=== PATIENT | male | born 1960 | race Caucasian/White ===

== ENCOUNTER 2016-12-14 16:18 | Emergency (ER) | payer MEDICAID ==
[2016-12-14 17:01] VITALS: BP 139/80
[2016-12-14] MEDS ORDERED: Bacitracin Oint 1 GM U/D Packet TOP ONE (17:16)
[2016-12-14] MEDS ORDERED: Diphtheria,Pertussis(Acell),Tetanus Vaccine 0.5 ML SDV IM ONE (17:16)
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
--- NOTE | 2016-12-15 09:48 | CR ---
Fingers Second Digit Rt F6 INDICATION: trauma, pigment grinder fb FINDINGS: Negative exam. No acute fracture or foreign body
== END 2016-12-14 18:41 | disposition home or self-care (01) ==
LOC: JP.ED 16:18
DX: S61.220A Laceration with foreign body of right index finger without damage to nail, initial encounter (principal); I10 Essential (primary) hypertension; E11.9 Type 2 diabetes mellitus without complications; Z87.891 Personal history of nicotine dependence; Z79.84 Long term (current) use of oral hypoglycemic drugs; Z79.899 Other long term (current) drug therapy; Z23 Encounter for immunization; W45.8XXA Other foreign body or object entering through skin, initial encounter
CPT/HCPCS: 12001; 73140-26-F6; 73140-F6; 90471; 90715; 99283-25

== ENCOUNTER 2017-07-05 00:45 | Emergency (ER) | payer MEDICAID ==
[2017-07-05] MEDS ORDERED: Sodium Chloride 0.9% 1,000 ML IV SCH (01:15)
[2017-07-05] MEDS ORDERED: Sodium Chloride 0.9% 10 ML Syringe FLUSH PRN (01:16)
[2017-07-05] MEDS ORDERED: HYDROmorphone 0.5 MG/0.5 ML Syringe IVPUSH ONE (01:16)
[2017-07-05] MEDS ORDERED: LORazepam 2 MG/ML SDV IVPUSH STA (01:16)
[2017-07-05] MEDS ORDERED: Ondansetron 4 MG/2 ML SDV ONE (01:20)
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
[2017-07-05 05:47] VITALS: BP 137/93
--- NOTE | 2017-07-05 08:46 | CR ---
Abdomen 2V AP Flat Upright Comparison: April 2015. FINDINGS: The bowel gas pattern is unremarkable. There is no bowel distention. There are no pathologi c air-fluid levels. No free air is seen. No pathologic calcifications are demonstrated. There has bee n prior abdominal hernia repair. There is moderate stool in the right colon. IMPRESSION: No acute findings are demonstrated.
== END 2017-07-05 06:02 | disposition home or self-care (01) ==
LOC: JP.ED 00:45
DX: R10.84 Generalized abdominal pain (principal); Z87.19 Personal history of other diseases of the digestive system; Z98.890 Other specified postprocedural states; E11.9 Type 2 diabetes mellitus without complications; I10 Essential (primary) hypertension; Z79.84 Long term (current) use of oral hypoglycemic drugs; Z79.899 Other long term (current) drug therapy; Z91.018 Allergy to other foods
CPT/HCPCS: 36415; 74019; 80053; 83690; 84484; 85027; 96361; 96374; 96375; 99284; J1170; J2060; J7030; J7050

== ENCOUNTER 2018-07-30 09:47 | Emergency (ER) | payer MEDICAID ==
[2018-07-30 10:13] VITALS: BP 114/90
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
--- NOTE | 2018-07-30 13:31 | CR ---
Fingers Thumb Lt FA: 07/30/2018 10:43 AM INDICATION: injury COMPARISON: None. FINDINGS/IMPRESSION: There is mild subluxation of the thumb at the MCP joint. This is likely degenerative in nature, however the possibility of acute on chronic subluxation is not excluded. Small corticated ossific densities are present adjacent to the first MCP joint which likely relate to sequela of remote trauma. No convincing acute fractures. 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 Mild soft tissue fullness is present adjacent to the first MCP joint. If there is high clinical suspicion for fracture, consider follow-up radiographs in 10 days.
== END 2018-07-30 11:24 | disposition home or self-care (01) ==
LOC: JP.ED 09:47
DX: S63.642A Sprain of metacarpophalangeal joint of left thumb, initial encounter (principal); E11.9 Type 2 diabetes mellitus without complications; I10 Essential (primary) hypertension; Z79.4 Long term (current) use of insulin; Z91.018 Allergy to other foods; Z79.899 Other long term (current) drug therapy; V29.9XXA Motorcycle rider (driver) (passenger) injured in unspecified traffic accident, initial encounter
CPT/HCPCS: 29125; 73140-26-FA; 73140-FA; 99283-25

== ENCOUNTER 2019-04-02 07:21 | Emergency (ER) | payer MEDICAID ==
[2019-04-02 07:34] VITALS: BP 132/93; PULSE 98
[2019-04-02] MEDS ORDERED: HYDROmorphone 0.5 MG/0.5 ML Syringe IM ONE (07:35)
[2019-04-02] MEDS ORDERED: Ketorolac 60 MG/2 ML SDV IM ONE (08:41)
[2019-04-02] MEDS ORDERED: Baclofen 10 MG Tab PO ONE (08:41)
--- NOTE | 2019-04-02 08:54 | CR ---
Pelvis 1V or 2V, Femur Min 2V Lt, Lumbar Spine 2 or 3V CLINICAL HISTORY: Pain, fall FINDINGS: No fracture or dislocation is identified. Articular surfaces are smooth. There is some mild acetabular spurring. There is calcific-like density overlying the right hip region. This likely is calcification within the gluteal muscle from previous injections IMPRESSION: No fracture or dislocation Lumbar Spine 2 or 3V CLINICAL HISTORY: Fall, pain FINDINGS: The vertebral body heights are maintained. There is moderate disc space narrowing at L5-S1. There is mild diffuse spondylosis. There are some osteoarthritic changes in the low lumbar facets Impression: Degenerative disc disease with spondylosis most notable L5-S1 Osteoarthropathy in the lower lumbar facets Femur LEFT FINDINGS: There is no acute fracture within the femur. No destructive changes are seen. There is some soft tissue convexity in the posterior mid thigh. Hematoma is not excluded. Impression: Possible posterior mid thigh hematoma. If clinically relevant ultrasound may be helpful
--- NOTE | 2019-04-02 08:58 | EDM.PDOC ---
ED HPI GENERAL MEDICAL PROBLEM - General Chief Complaint: Trauma Stated Complaint: FELL OFF LADDER Time Seen by Provider: 04/02/19 07:35 Source of Information: Reports: Patient History Limitations: Reports: No Limitations - History of Present Illness INITIAL COMMENTS - FREE TEXT/NARRATIVE: pt arrived with a history of cleaning off the roof at [facility] in [facility]. This happened about 2 pm yesterday. He is complaining of pain in the left buttock . He fell off the ladder and a large piece of ice fell on to his left hip area. He has swelling in the post thigh area. Onset: Other ( yesterday about 2 pm. A trauma code was called. ) Duration: Hour(s): Location: Reports: Pelvis, Lower Extremity, Left, Other (pt has pain radiating down the left leg. ) Left Leg Pain Score (Numeric/FACES): 10 - Related Data Allergies Allergy/AdvReac Type Severity Reaction Status Date / Time banana Allergy Hives Verified 04/02/19 07:34 Home Meds: Home Meds Glimepiride 4 mg PO BID 02/19/13 [History] Lisinopril 5 mg PO QAM 02/19/13 [History] SitaGLIPtin [Januvia] 100 mg PO DAILY 02/19/13 [History] Canagliflozin [Invokana] 300 mg PO QAM 04/14/15 [History] Insulin Isophane NPH, Human [HumuLIN N] 32 units SUBCUT DAILY 07/30/18 [History] metFORMIN [Glucophage] 1 tab PO BEDTIME 11/27/18 [History] metFORMIN [Glucophage] 2 tab PO ACBREAKFAST 11/27/18 [History] traMADol [Ultram] 1 tab PO Q8H PRN 11/27/18 [History] Past Medical History HEENT History: Reports: Impaired Vision, Other (See Below) Other HEENT History: wears glasses Cardiovascular History: Reports: Hypertension Respiratory History: Reports: Sleep Apnea Gastrointestinal History: Reports: Bowel Obstruction Genitourinary History: Reports: Other (See Below) Other Genitourinary History: erectile dysfunction Musculoskeletal History: Reports: Back Pain, Chronic Other Musculoskeletal History: herniated disk Neurological History: Reports: Concussion Endocrine/Metabolic History: Reports: Diabetes, Type II - Past Surgical History HEENT Surgical History: Reports: Cataract Surgery, Eye Surgery, Oral Surgery, Other (See Below) GI Surgical History: Reports: Hernia, Abdominal, Hernia Repair/Other, Other ( See Below) Other GI Surgeries/Procedures: hourglass intestine, 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 A large piec of ice hit the area. ) ED EXAM, GENERAL - Physical Exam Exam: See Below Free Text/Narrative:: pt arrived with signifcant pain with any movement of the left leg. He has swelling in the post thigh area. Exam Limited By: No Limitations General Appearance: Alert, Anxious, Moderate Distress Ears: Normal TMs Nose: Normal Inspection Throat/Mouth: Normal Inspection Head: Atraumatic Neck: Normal Inspection Respiratory/Chest: No Respiratory Distress Cardiovascular: Regular Rate, Rhythm GI/Abdominal: Soft, Non-Tender (Male) Exam: Deferred Rectal (Males) Exam: Deferred Back Exam: Other (pt is tender over the left buttock area. There is swelling in the post thigh. ) Extremities: Leg Pain Neurological: Alert, Oriented, Normal Cognition, Other (pt has a Glacow of 15) Psychiatric: Normal Affect, Anxious Course - Vital Signs Last Recorded V/S: Last Vital Signs Temp 36.4 C 04/02/19 07:33 Pulse 98 04/02/19 07:33 Resp 18 04/02/19 07:33 BP 132/93 H 04/02/19 07:33 Pulse Ox 92 L 04/02/19 07:33 - Orders/Labs/Meds Meds: Medications Discontinued Medications Generic Name Dose Route Start Last Admin Trade Name Freq PRN Reason Stop Dose Admin Bacitracin 1 dose 04/02/19 09:00 04/02/19 09:09 Bacitracin Oint 1 Gm TOP 04/02/19 09:01 1 dose ONETIME ONE Administration Baclofen 10 mg 04/02/19 08:41 04/02/19 08:50 Lioresal PO 04/02/19 08:42 10 mg ONETIME ONE Administration Hydromorphone HCl 0.5 mg 04/02/19 07:35 04/02/19 08:08 Dilaudid IM 04/02/19 07:36 0.5 mg ONETIME ONE Administration Ketorolac Tromethamine 60 mg 04/02/19 08:41 04/02/19 08:50 Toradol IM 04/02/19 08:42 60 mg ONETIME ONE Administration - Re-Assessments/Exams Free Text/Narrative Re-Assessment/Exam: 04/02/19 09:10 pt arrived very uncomfortable in the left thigh area. Xrays of the lumbar spine , left hip and left femeur and pelvis. These were neg for fracture. He appears to have a hematoma in the post thigh. He was warned that he might see some discoloration in the post thigh area. Departure - Departure Time of Disposition: 08:56 Disposition: Home, Self-Care 01 Condition: Fair Clinical Impression: Contusion of left hip, Muscle strain of left hip, Hematoma of left thigh, Abrasion of anterior left lower leg - Discharge Information Instructions: Muscle Strain, [id number], Contusion, [id number], Quadriceps Contusion, [id number] Referrals: PCP,None [Primary Care Provider] - Forms: ED Department Discharge Care Plan Goals: ice pack to the left hip and thigh area for the next 72 hours then may use moist heat, baclofen 10 mg bid to relax muscles, norco 5/325 q6 h prn for pain, clean abrasion daily and apply bacatracin Sepsis Event Note - Evaluation Sepsis Screening Result: No Definite Risk - Focused Exam Date Exam was Performed: 04/04/19 Time Exam was Performed: 08:33
[2019-04-02] MEDS ORDERED: Bacitracin Oint 1 GM U/D Packet TOP ONE (09:00)
== END 2019-04-02 09:15 | disposition home or self-care (01) ==
LOC: JP.ED 07:21
DX: S76.012A Strain of muscle, fascia and tendon of left hip, initial encounter (principal); S70.12XA Contusion of left thigh, initial encounter; S70.02XA Contusion of left hip, initial encounter; S80.812A Abrasion, left lower leg, initial encounter; E11.9 Type 2 diabetes mellitus without complications; I10 Essential (primary) hypertension; Z91.018 Allergy to other foods; Z79.899 Other long term (current) drug therapy; Z79.4 Long term (current) use of insulin; W11.XXXA Fall on and from ladder, initial encounter
CPT/HCPCS: 72100; 72170; 73552; 96372; 99283; A9270; J1170; J1885

== ENCOUNTER 2019-04-28 18:45 | Emergency (ER) | payer MEDICAID ==
[2019-04-28 19:01] VITALS: BP 124/86; PULSE 99
--- NOTE | 2019-04-28 19:11 | EDM.PDOC ---
ED HPI GENERAL MEDICAL PROBLEM - General Chief Complaint: Diabetic Complaint Stated Complaint: HIGH BLOOD SUGAR Time Seen by Provider: 04/28/19 19:09 Source of Information: Reports: Patient History Limitations: Reports: No Limitations - History of Present Illness INITIAL COMMENTS - FREE TEXT/NARRATIVE: pt arrived after calling the nurse line kandi his bs was over 500. He has not taken any of his meds today. He was at his girl friends today and had not taken his meds with him. He has been very fatiqued He normally is on metformin and insulin. He has been very fatiqued. Onset: Gradual Duration: Day(s):, Other (pt had a high bs but he had not taken his insulin today. ) Location: Reports: Generalized Quality: Reports: Other (mainly fatique) Improves with: Reports: None Associated Symptoms: Reports: Weakness - Related Data Allergies Allergy/AdvReac Type Severity Reaction Status Date / Time banana Allergy Hives Verified 04/28/19 18:55 Home Meds: Home Meds Glimepiride 4 mg PO BID 02/19/13 [History] Lisinopril 5 mg PO QAM 02/19/13 [History] SitaGLIPtin [Januvia] 100 mg PO DAILY 02/19/13 [History] Canagliflozin [Invokana] 300 mg PO QAM 04/14/15 [History] Insulin Isophane NPH, Human [HumuLIN N] 32 units SUBCUT DAILY 07/30/18 [History] metFORMIN [Glucophage] 1 tab PO BEDTIME 11/27/18 [History] metFORMIN [Glucophage] 2 tab PO ACBREAKFAST 11/27/18 [History] traMADol [Ultram] 1 tab PO Q8H PRN 11/27/18 [History] Past Medical History HEENT History: Reports: Impaired Vision, Other (See Below) Other HEENT History: wears glasses Cardiovascular History: Reports: Hypertension Respiratory History: Reports: Sleep Apnea Gastrointestinal History: Reports: Bowel Obstruction Genitourinary History: Reports: Other (See Below) Other Genitourinary History: erectile dysfunction Musculoskeletal History: Reports: Back Pain, Chronic Other Musculoskeletal History: herniated disk Neurological History: Reports: Concussion Endocrine/Metabolic History: Reports: Diabetes, Type II - Infectious Disease History Infectious Disease History: Reports: Chicken Pox - Past Surgical History HEENT Surgical History: Reports: Cataract Surgery, Eye Surgery, Oral Surgery, Other (See Below) GI Surgical History: Reports: Hernia, Abdominal, Hernia Repair/Other, Other ( See Below) Other GI Surgeries/Procedures: hourglass intestine, 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 ) GI/Abdominal: Reports: No Symptoms : Reports: No Symptoms Musculoskeletal: Reports: No Symptoms Skin: Reports: No Symptoms Neurological: Reports: No Symptoms ED EXAM GENERAL NO PERIP PULSE - Physical Exam Exam: See Below Text/Narrative:: pt looks good at this time. He has bween feeling more fatiqued. He has not taken his meds today so his bs was very high. Exam Limited By: No Limitations General Appearance: Alert, No Apparent Distress Ears: Normal TMs Nose: Normal Inspection Throat/Mouth: Normal Inspection Head: Atraumatic Neck: Normal Inspection Respiratory/Chest: No Respiratory Distress Cardiovascular: Regular Rate, Rhythm, Other (pt has not had chest pain. ) GI/Abdominal: Soft, Non-Tender (Male) Exam: Deferred Rectal (Males) Exam: Deferred Back Exam: Normal Inspection Extremities: Normal Inspection Neurological: Alert, Oriented, Normal Cognition Psychiatric: Anxious Course - Vital Signs Last Recorded V/S: Last Vital Signs Temp 36.9 C 04/28/19 18:56 Pulse 99 04/28/19 18:56 Resp 15 04/28/19 18:56 BP 124/86 04/28/19 18:56 Pulse Ox 93 L 04/28/19 18:56 Orthostatic Blood Pressure [ 101/81 Standing] Orthostatic Blood Pressure [ 126/90 Sitting] Orthostatic Blood Pressure [ 134/90 Supine] - Orders/Labs/Meds Labs: Laboratory Tests 04/28/19 04/28/19 04/28/19 Range/Units 19:17 19:17 19:17 WBC 7.2 (4.5-11.0) K/uL RBC 4.66 (4.30-5.90) M/uL Hgb 15.7 H (12.0-15.0) g/dL Hct 43.8 (40.0-54.0) % MCV 94 (80-98) fL MCH 34 H (27-31) pg MCHC 36 (32-36) % Plt Count 260 (150-400) K/uL Neut % (Auto) 53 (36-66) % Lymph % (Auto) 34 (24-44) % Hickman % (Auto) 11 H (2-6) % Eos % (Auto) 2 (2-4) % Baso % (Auto) 0 (0-1) % VBG pH 7.489 H (7.350-7.450) Sodium 132 L (140-148) mmol/L Potassium 4.2 (3.6-5.2) mmol/L Chloride 96 L (100-108) mmol/L Carbon Dioxide 25 (21-32) mmol/L Anion Gap 15.2 H (5.0-14.0) mmol/L BUN 20 H (7-18) mg/dL Creatinine 1.1 (0.8-1.3) mg/dL Est Cr Clr Drug Dosing 77.96 mL/min Estimated GFR (MDRD) > 60 (>60) Glucose 373 H (74-106) mg/dL Calcium 8.4 L (8.5-10.1) mg/dL Total Bilirubin 0.5 (0.2-1.0) mg/dL AST 23 (15-37) U/L ALT 40 (12-78) U/L Alkaline Phosphatase 93 (46-116) U/L Total Protein 7.6 (6.4-8.2) g/dL Albumin 3.2 L (3.4-5.0) g/dL Globulin 4.4 H (2.3-3.5) g/dL Albumin/Globulin Ratio 0.7 L (1.2-2.2) Urine Color (YELLOW) Urine Appearance (CLEAR) Urine pH (5.0-8.0) Ur Specific Clare (1.008-1.030) Urine Protein (NEGATIVE) mg/dL Urine Glucose (UA) (NEGATIVE) mg/dL Urine Ketones (NEGATIVE) mg/dL Urine Occult Blood (NEGATIVE) Urine Nitrite (NEGATIVE) Urine Bilirubin (NEGATIVE) Urine Urobilinogen (0.2-1.0) EU/dL Ur Leukocyte Esterase (NEGATIVE) Urine RBC (0-5) Urine WBC (0-5) Ur Epithelial Cells Amorphous Sediment Urine Bacteria Urine Mucus 04/28/19 Range/Units 19:29 WBC (4.5-11.0) K/uL RBC (4.30-5.90) M/uL Hgb (12.0-15.0) g/dL Hct (40.0-54.0) % MCV (80-98) fL MCH (27-31) pg MCHC (32-36) % Plt Count (150-400) K/uL Neut % (Auto) (36-66) % Lymph % (Auto) (24-44) % Hickman % (Auto) (2-6) % Eos % (Auto) (2-4) % Baso % (Auto) (0-1) % VBG pH (7.350-7.450) Sodium (140-148) mmol/L Potassium (3.6-5.2) mmol/L Chloride (100-108) mmol/L Carbon Dioxide (21-32) mmol/L Anion Gap (5.0-14.0) mmol/L BUN (7-18) mg/dL Creatinine (0.8-1.3) mg/dL Est Cr Clr Drug Dosing mL/min Estimated GFR (MDRD) (>60) Glucose (74-106) mg/dL Calcium (8.5-10.1) mg/dL Total Bilirubin (0.2-1.0) mg/dL AST (15-37) U/L ALT (12-78) U/L Alkaline Phosphatase (46-116) U/L Total Protein (6.4-8.2) g/dL Albumin (3.4-5.0) g/dL Globulin (2.3-3.5) g/dL Albumin/Globulin Ratio (1.2-2.2) Urine Color Yellow (YELLOW) Urine Appearance Clear (CLEAR) Urine pH 6.5 (5.0-8.0) Ur Specific Clare 1.020 (1.008-1.030) Urine Protein Negative (NEGATIVE) mg/dL Urine Glucose (UA) 500 H (NEGATIVE) mg/dL Urine Ketones Negative (NEGATIVE) mg/dL Urine Occult Blood Negative (NEGATIVE) Urine Nitrite Negative (NEGATIVE) Urine Bilirubin Negative (NEGATIVE) Urine Urobilinogen 0.2 (0.2-1.0) EU/dL Ur Leukocyte Esterase Negative (NEGATIVE) Urine RBC Not seen (0-5) Urine WBC 0-5 (0-5) Ur Epithelial Cells Not seen Amorphous Sediment Many Urine Bacteria Not seen Urine Mucus Not seen Meds: Medications Discontinued Medications Generic Name Dose Route Start Last Admin Trade Name Khris PRN Reason Stop Dose Admin Sodium Chloride 1,000 mls @ 999 mls/hr 04/28/19 19:45 04/28/19 20:21 Normal Saline IV 999 mls/hr ASDIRECTED YOUSIF Administration Insulin Human Regular 6 unit 04/28/19 19:45 04/28/19 20:17 Humulin R SUBCUT 04/28/19 19:46 6 unit ONETIME ONE Administration Insulin Human Regular 5 unit 04/28/19 21:12 04/28/19 21:27 Humulin R SUBCUT 04/28/19 21:13 5 units ONETIME ONE Administration Metformin HCl 500 mg 04/28/19 19:45 04/28/19 20:22 Glucophage PO 04/28/19 19:46 500 mg ONETIME ONE Administration - Re-Assessments/Exams Free Text/Narrative Re-Assessment/Exam: 04/28/19 20:31 pt had orthostatic bp done and with standing it did drop. He had numbers which showed some dehydration. He was given a liter of fluid. He was given regular insulin and 500 of glucophage. 04/28/19 21:13 pt has a bs at 329. 5 more units of insulin reg was given. Departure - Departure Time of Disposition: 21:35 Disposition: Home, Self-Care 01 Condition: Fair Clinical Impression: Dehydration, Hyperglycemia - Discharge Information Instructions: Dehydration, Adult, [id number], Hyperglycemia, [id number] Referrals: Albert Carpenter Sr, MD [Primary Care Provider] - Forms: ED Department Discharge Care Plan Goals: push fluids avoid high sugar one, tomorrow resume usual meds except cut the lisinopril in half--2.[address] Carpenter in the next week. try to eat a meal when he get home. Sepsis Event Note - Evaluation Sepsis Screening Result: No Definite Risk - Focused Exam Date Exam was Performed: 05/02/19 Time Exam was Performed: 07:48
[2019-04-28] MEDS ORDERED: Sodium Chloride 0.9% 1,000 ML IV SCH (19:45)
[2019-04-28] MEDS ORDERED: metFORMIN 500 MG Tab PO ONE (19:45)
[2019-04-28] MEDS ORDERED: Insulin Regular, Human 100 Units/ML 3 ML Vial SUBCUT ONE ×2 (19:45→21:12)
== END 2019-04-28 21:30 | disposition home or self-care (01) ==
LOC: JP.ED 18:45
DX: E11.65 Type 2 diabetes mellitus with hyperglycemia (principal); E86.0 Dehydration; I10 Essential (primary) hypertension; Z91.018 Allergy to other foods; Z79.899 Other long term (current) drug therapy; Z79.4 Long term (current) use of insulin
CPT/HCPCS: 36415; 80053; 81001; 82800; 82962; 85025; 96360; 99284; A9270; J1815; J7030

== ENCOUNTER 2019-05-08 10:05 | Emergency (ER) | payer MEDICAID ==
--- NOTE | 2019-05-08 11:59 | EDM.PDOC ---
ED HPI GENERAL MEDICAL PROBLEM - General Chief Complaint: Back Pain or Injury Stated Complaint: LOWER BACK PAIN Time Seen by Provider: 05/08/19 11:00 Source of Information: Reports: Patient History Limitations: Reports: No Limitations - History of Present Illness INITIAL COMMENTS - FREE TEXT/NARRATIVE: pt has a past history of a disc removeal. 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 H e now has pain accross his entire back--upper lumbar. Onset: Other ( started yesterday and he could hardly get out of bed this am. ) Duration: Hour(s): Location: Reports: Back, Other (pain is not radiating down his legs. ) Associated Symptoms: Reports: No Other Symptoms Back Pain Score (Numeric/FACES): 10 - Related Data Allergies Allergy/AdvReac Type Severity Reaction Status Date / Time banana Allergy Hives Verified 04/28/19 18:55 Home Meds: Home Meds Glimepiride 4 mg PO BID 02/19/13 [History] Lisinopril 5 mg PO QAM 02/19/13 [History] SitaGLIPtin [Januvia] 100 mg PO DAILY 02/19/13 [History] Canagliflozin [Invokana] 300 mg PO QAM 04/14/15 [History] Insulin Isophane NPH, Human [HumuLIN N] 32 units SUBCUT DAILY 07/30/18 [History] metFORMIN [Glucophage] 1 tab PO BEDTIME 11/27/18 [History] metFORMIN [Glucophage] 2 tab PO ACBREAKFAST 11/27/18 [History] traMADol [Ultram] 1 tab PO Q8H PRN 11/27/18 [History] Past Medical History HEENT History: Reports: Impaired Vision, Other (See Below) Other HEENT History: wears glasses Cardiovascular History: Reports: Hypertension Respiratory History: Reports: Sleep Apnea Gastrointestinal History: Reports: Bowel Obstruction Genitourinary History: Reports: Other (See Below) Other Genitourinary History: erectile dysfunction Musculoskeletal History: Reports: Back Pain, Chronic Other Musculoskeletal History: herniated disk Neurological History: Reports: Concussion Endocrine/Metabolic History: Reports: Diabetes, Type II - Infectious Disease History Infectious Disease History: Reports: Chicken Pox - Past Surgical History HEENT Surgical History: Reports: Cataract Surgery, Eye Surgery, Oral Surgery, Other (See Below) GI Surgical History: Reports: Hernia, Abdominal, Hernia Repair/Other, Other ( See Below) Other GI Surgeries/Procedures: hourglass intestine, 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 ) Skin: Reports: No Symptoms Neurological: Reports: No Symptoms ED EXAM,LOWER BACK PAIN/INJURY - Physical Exam Exam: See Below Text/Narrative:: pt arrived with pain in his upper lumbar area. He has not fallen or injured himself. Exam Limited By: No Limitations General Appearance: Alert, Anxious, Moderate Distress Ears: Normal TMs Nose: Normal Inspection Throat/Mouth: Normal Inspection Head: Atraumatic Back Exam: Other (pt is tender accross his upper lumbar area. He has no known injury. 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 ) Extremities: Normal Inspection, Other (no pain radiating down the leg. ) Neurological: Alert Psychiatric: Anxious Course - Vital Signs Last Recorded V/S: Last Vital Signs Temp 35.8 C L 05/08/19 10:35 Pulse 100 05/08/19 12:50 Resp 16 05/08/19 12:50 BP 124/91 H 05/08/19 12:50 Pulse Ox 95 05/08/19 12:50 - Orders/Labs/Meds Meds: Medications Discontinued Medications Generic Name Dose Route Start Last Admin Trade Name Freq PRN Reason Stop Dose Admin Ketorolac Tromethamine 60 mg 05/08/19 11:52 05/08/19 12:13 Toradol IM 05/08/19 11:53 60 mg ONETIME ONE Administration Oxycodone/Acetaminophen 1 tab 05/08/19 11:53 05/08/19 12:08 Percocet 325-5 Mg PO 05/08/19 11:54 1 tab ONETIME ONE Administration - Re-Assessments/Exams Free Text/Narrative Re-Assessment/Exam: 05/08/19 12:00 pt was given torodol 60 mg im and percocet. He took flexeril 20mg at home. Pt was much more comfortable. 05/08/19 13:21 05/10/19 09:36 Departure - Departure Time of Disposition: 13:16 Disposition: Home, Self-Care 01 Condition: Fair Clinical Impression: Low back pain - Discharge Information Instructions: Acute Back Pain, Adult Referrals: Albert Carpenter Sr, MD [Primary Care Provider] - Forms: ED Department Discharge Care Plan Goals: ice or heat to the lumbar area, rest , no work for 2 days, baclofen 10 mg bid, motrin 600mg with food, tid, percocet 5/325 q6h prn for pain # 10. See regular Dr if persistent pain Sepsis Event Note - Evaluation Sepsis Screening Result: No Definite Risk - Focused Exam Date Exam was Performed: 05/10/19 Time Exam was Performed: 09:36
[2019-05-08] MEDS: Acetaminophen/oxyCODONE 325-5 MG Tab PO ONE (12:08)
[2019-05-08] MEDS: Ketorolac 60 MG/2 ML SDV IM ONE (12:13)
[2019-05-08 12:51] VITALS: BP 124/91; PULSE 100
== END 2019-05-08 13:45 | disposition home or self-care (01) ==
LOC: JP.ED 10:05
DX: M54.5 Low back pain (principal); I10 Essential (primary) hypertension; E11.9 Type 2 diabetes mellitus without complications; Z91.018 Allergy to other foods; Z79.899 Other long term (current) drug therapy; Z79.4 Long term (current) use of insulin
CPT/HCPCS: 96372; 99283; A9270; J1885

== ENCOUNTER 2019-08-12 11:56 | Emergency (ER) | payer MEDICAID ==
[2019-08-12 12:11] VITALS: BP 135/96; PULSE 94
== END 2019-08-12 12:34 | disposition left against medical advice (07) ==
LOC: JP.ED 11:56
DX: Z53.21 Procedure and treatment not carried out due to patient leaving prior to being seen by health care provider (principal)

== ENCOUNTER 2019-12-25 16:18 | Emergency (ER) | payer MEDICAID ==
[2019-12-25 16:26] VITALS: BP 142/94; PULSE 119
[2019-12-25] MEDS ORDERED: Acetaminophen 500 MG Tab PO ONE (16:52)
--- NOTE | 2019-12-25 16:59 | EDM.PDOC ---
ED HPI GENERAL MEDICAL PROBLEM - General Chief Complaint: General Stated Complaint: COVID SYMPTOMS Time Seen by Provider: 12/25/19 16:40 Source of Information: Reports: Patient, Old Records, RN History Limitations: Reports: No Limitations - History of Present Illness INITIAL COMMENTS - FREE TEXT/NARRATIVE: 59 yo male presents with low grade fever, body aches, and mild SOB that began last night. No self tx. Has not called the clinic. 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 No definite exposures. Is a nonsmoker, has DM with generally poor control. Onset: Gradual Onset Date: 12/24/19 Duration: Hour(s):, Getting Worse Location: Reports: Generalized Quality: Reports: Ache Severity: Moderate Improves with: Reports: None Worsens with: Reports: Other (? time) Context: Reports: Other (See HPI) Associated Symptoms: Reports: Fever/Chills, Malaise, Shortness of Breath (mild). Denies: Confusion, Chest Pain, Cough, Nausea/Vomiting, Rash Treatments PHOTOGRAPHER STILL: Reports: Other (see below) (none) Chest Pain Score (Numeric/FACES): 8 Generalized Pain Score (Numeric/FACES): 6 - Related Data Allergies Allergy/AdvReac Type Severity Reaction Status Date / Time banana Allergy Hives Verified 04/28/19 18:55 Home Meds: Home Meds Glimepiride 4 mg PO BID 02/19/13 [History] Lisinopril 5 mg PO QAM 02/19/13 [History] SitaGLIPtin [Januvia] 100 mg PO DAILY 02/19/13 [History] Canagliflozin [Invokana] 300 mg PO QAM 04/14/15 [History] Insulin Isophane NPH, Human [HumuLIN N] 32 units SUBCUT DAILY 07/30/18 [History] metFORMIN [Glucophage] 1 tab PO BEDTIME 11/27/18 [History] metFORMIN [Glucophage] 2 tab PO ACBREAKFAST 11/27/18 [History] traMADol [Ultram] 1 tab PO Q8H PRN 11/27/18 [History] dexAMETHasone [Dexamethasone] 6 mg PO DAILY #12 tablet 12/25/19 [Rx] Past Medical History HEENT History: Reports: Impaired Vision, Other (See Below) Other HEENT History: wears glasses Cardiovascular History: Reports: Hypertension Respiratory History: Reports: Sleep Apnea Gastrointestinal History: Reports: Bowel Obstruction Genitourinary History: Reports: Other (See Below) Other Genitourinary History: erectile dysfunction Musculoskeletal History: Reports: Back Pain, Chronic Other Musculoskeletal History: herniated disk Neurological History: Reports: Concussion Endocrine/Metabolic History: Reports: Diabetes, Type II - Infectious Disease History Infectious Disease History: Reports: Chicken Pox - Past Surgical History HEENT Surgical History: Reports: Cataract Surgery, Eye Surgery, Oral Surgery, Other (See Below) Other HEENT Surgeries/Procedures: left eye band and bubble GI Surgical History: Reports: Hernia, Abdominal, Hernia Repair/Other, Other (See Below) Other GI Surgeries/Procedures: hourglass intestine, so obstructs at times Neurological Surgical History: Reports: None Social & Family History - Family History Family Medical History: No Pertinent Family History - Tobacco Use Tobacco Use Status *Q: Never Tobacco User - Caffeine Use Caffeine Use: Reports: Coffee - Recreational Drug Use Recreational Drug Use: No ED ROS GENERAL - Review of Systems Review Of Systems: See Below Constitutional: Reports: No Symptoms HEENT: Reports: No Symptoms Respiratory: Reports: Shortness of Breath (mild) Cardiovascular: Reports: Dyspnea on Exertion Endocrine: Reports: No Symptoms GI/Abdominal: Reports: No Symptoms : Reports: No Symptoms Musculoskeletal: Reports: No Symptoms Skin: Reports: No Symptoms Neurological: Reports: No Symptoms ED EXAM, GENERAL - Physical Exam Exam: See Below Exam Limited By: No Limitations General Appearance: Alert, WD/WN, No Apparent Distress Eye Exam: Bilateral Eye: Normal Inspection Ears: Normal External Exam, Normal Canal, Hearing Grossly Normal, Normal TMs Ear Exam: Bilateral Ear: Auricle Normal, Canal Normal, TM normal Nose: Normal Inspection, No Blood Throat/Mouth: Normal Inspection, Normal Lips, Normal Oropharynx, Normal Voice, No Airway Compromise Head: Atraumatic, Normocephalic Neck: Normal Inspection Respiratory/Chest: No Respiratory Distress, Lungs Clear, Normal Breath Sounds, No Accessory Muscle Use Cardiovascular: Regular Rate, Rhythm, No Edema, Tachycardia GI/Abdominal: Normal Bowel Sounds, Soft, Non-Tender, No Distention Back Exam: Normal Inspection. No: CVA Tenderness (R), CVA Tenderness (L) Extremities: Normal Inspection, Normal Range of Motion, Non-Tender, No Pedal Edema Neurological: Alert, Oriented, CN II-XII Intact, Normal Cognition, No Motor/Sensory Deficits Psychiatric: Normal Affect, Normal Mood Skin Exam: Warm, Dry, Intact, Normal Color, No Rash Course - Vital Signs Last Recorded V/S: Last Vital Signs Temp 36.8 C 12/25/19 16:25 Pulse 119 H 12/25/19 16:25 Resp 18 12/25/19 16:25 BP 142/94 H 12/25/19 16:25 Pulse Ox 93 L 12/25/19 16:25 - Orders/Labs/Meds Orders: Active Orders 24 hr Category Date Time Status CORONAVIRUS COVID-19, [facility]ACE Routine Lab 12/25/19 16:55 Ordered Labs: Laboratory Tests 12/25/19 12/25/19 Range/Units 17:05 17:05 WBC 5.5 (4.5-11.0) K/uL RBC 5.10 (4.30-5.90) M/uL Hgb 16.7 H (12.0-15.0) g/dL Hct 48.3 (40.0-54.0) % MCV 95 (80-98) fL MCH 33 H (27-31) pg MCHC 35 (32-36) % Plt Count 175 (150-400) K/uL Sodium 134 L (140-148) mmol/L Potassium 4.4 (3.6-5.2) mmol/L Chloride 97 L (100-108) mmol/L Carbon Dioxide 30 (21-32) mmol/L Anion Gap 11.4 (5.0-14.0) mmol/L BUN 14 (7-18) mg/dL Creatinine 1.2 (0.8-1.3) mg/dL Est Cr Clr Drug Dosing 70.59 mL/min Estimated GFR (MDRD) > 60 (>60) Glucose 334 H (74-106) mg/dL Calcium 9.1 (8.5-10.1) mg/dL Meds: Medications Discontinued Medications Generic Name Dose Route Start Last Admin Trade Name Freq PRN Reason Stop Dose Admin Acetaminophen 1,000 mg 12/25/19 16:52 12/25/19 17:02 Tylenol Extra Strength PO 12/25/19 16:53 1,000 mg ONETIME ONE Administration Departure - Departure Time of Disposition: 18:20 Disposition: Home, Self-Care 01 Condition: Fair Clinical Impression: Viral illness, Elevated glucose, Hypoxia - Discharge Information *PRESCRIPTION DRUG MONITORING PROGRAM REVIEWED*: Not Applicable *COPY OF PRESCRIPTION DRUG MONITORING REPORT IN PATIENT CONCHITA: Not Applicable Instructions: Viral Respiratory Infection Referrals: PCP,None [Primary Care Provider] - Forms: ED Department Discharge Additional Instructions: We will call you when your Covid test results come back, 2-3 days. In the meantime isolate yourself to prevent spread. Take acetaminophen up to 1000 mg every 6 hrs for fever control. Drink enough fluids so your urine is light yellow in color. Take dexamethasone as directed for your breathing. Rest. Recheck with your provider as needed. Sepsis Event Note (ED) - Evaluation Sepsis Screening Result: Possible Sepsis Risk - Focused Exam Vital Signs: Vital Signs Temp Pulse Resp BP Pulse Ox 12/25/19 16:25 36.8 C 119 H 18 142/94 H 93 L - My Orders Last 24 Hours: My Active Orders 12/25/19 16:55 CORONAVIRUS COVID-19, [facility] Routine - Assessment/Plan Last 24 Hours: My Active Orders 12/25/19 16:55 CORONAVIRUS COVID-19, [facility] Routine
[2019-12-25] MEDS ORDERED: Dexamethasone 4 MG/ML SDV PO ONE (18:07)
[2019-12-25] MEDS ORDERED: Dexamethasone 2 MG Tab PO ONE (18:09)
== END 2019-12-25 18:20 | disposition home or self-care (01) ==
LOC: JP.ED 16:18
DX: U07.1 COVID-19 (principal); E11.65 Type 2 diabetes mellitus with hyperglycemia; R09.02 Hypoxemia; R00.0 Tachycardia, unspecified; I10 Essential (primary) hypertension; Z91.018 Allergy to other foods; Z79.4 Long term (current) use of insulin; Z79.899 Other long term (current) drug therapy
CPT/HCPCS: 36415; 80048; 85027; 87635; 99283; A9270; J8540; J1100; U0002

== ENCOUNTER 2020-01-06 14:36 | Emergency (ER) | payer MEDICAID ==
[2020-01-06 14:52] VITALS: BP 141/96; PULSE 107
[2020-01-06] MEDS ORDERED: Albuterol/Ipratropium 4 GM Inhalation Spray INH PRN (15:14)
[2020-01-06] MEDS ORDERED: Ketorolac 60 MG/2 ML SDV IM ONE (15:14)
[2020-01-06] MEDS ORDERED: LORazepam 1 MG Tab PO ONE (15:14)
--- NOTE | 2020-01-06 15:17 | EDM.PDOC ---
ED HPI GENERAL MEDICAL PROBLEM - General Chief Complaint: Respiratory Problem Stated Complaint: COVID POSITIVE- STILL SYMPTOMATIC Time Seen by Provider: 01/06/20 15:00 Source of Information: Reports: Patient, RN Notes Reviewed History Limitations: Reports: No Limitations - History of Present Illness INITIAL COMMENTS - FREE TEXT/NARRATIVE: 59-year-old gentleman presents emergency department a complaint of body aches shortness of breath cough and sputum production. He is 14 days into his COVID- 19 diagnosis. States "I just cannot take it anymore and need to be admitted to the hospital" - Related Data Allergies Allergy/AdvReac Type Severity Reaction Status Date / Time banana Allergy Hives Verified 04/28/19 18:55 Home Meds: Home Meds Glimepiride 4 mg PO BID 02/19/13 [History] Lisinopril 5 mg PO QAM 02/19/13 [History] SitaGLIPtin [Januvia] 100 mg PO DAILY 02/19/13 [History] Canagliflozin [Invokana] 300 mg PO QAM 04/14/15 [History] Insulin Isophane NPH, Human [HumuLIN N] 32 units SUBCUT DAILY 07/30/18 [History] metFORMIN [Glucophage] 1 tab PO BEDTIME 11/27/18 [History] metFORMIN [Glucophage] 2 tab PO ACBREAKFAST 11/27/18 [History] traMADol [Ultram] 1 tab PO Q8H PRN 11/27/18 [History] Past Medical History HEENT History: Reports: Impaired Vision, Other (See Below) Other HEENT History: wears glasses Cardiovascular History: Reports: Hypertension Respiratory History: Reports: Sleep Apnea Gastrointestinal History: Reports: Bowel Obstruction Genitourinary History: Reports: Other (See Below) Other Genitourinary History: erectile dysfunction Musculoskeletal History: Reports: Back Pain, Chronic Other Musculoskeletal History: herniated disk Neurological History: Reports: Concussion Endocrine/Metabolic History: Reports: Diabetes, Type II - Infectious Disease History Infectious Disease History: Reports: Chicken Pox - Past Surgical History HEENT Surgical History: Reports: Cataract Surgery, Eye Surgery, Oral Surgery, Ot her (See Below) Other HEENT Surgeries/Procedures: left eye band and bubble GI Surgical History: Reports: Hernia, Abdominal, Hernia Repair/Other, Other (See Below) Other GI Surgeries/Procedures: hourglass intestine, so obstructs at times Neurological Surgical History: Reports: None Social & Family History - Family History Family Medical History: No Pertinent Family History - Tobacco Use Tobacco Use Status *Q: Never Tobacco User - Caffeine Use Caffeine Use: Reports: Coffee - Recreational Drug Use Recreational Drug Use: No ED ROS GENERAL - Review of Systems Review Of Systems: See Below Constitutional: Reports: Weakness, Fatigue. Denies: Fever HEENT: Reports: No Symptoms Respiratory: Reports: Shortness of Breath, Cough, Sputum Cardiovascular: Reports: Dyspnea on Exertion GI/Abdominal: Reports: No Symptoms : Reports: No Symptoms Musculoskeletal: Reports: Muscle Pain, Muscle Stiffness Skin: Reports: No Symptoms ED EXAM, GENERAL - Physical Exam Exam: See Below Exam Limited By: No Limitations General Appearance: Alert, Anxious Respiratory/Chest: No Respiratory Distress, Lungs Clear, Normal Breath Sounds, No Accessory Muscle Use, Chest Non-Tender Cardiovascular: Regular Rate, Rhythm, No Murmur GI/Abdominal: Soft, Non-Tender Back Exam: Normal Inspection, Full Range of Motion Extremities: No Pedal Edema Course - Vital Signs Last Recorded V/S: Last Vital Signs Temp 97.6 F 01/06/20 14:52 Pulse 107 H 01/06/20 14:52 Resp 20 01/06/20 14:52 BP 141/96 H 01/06/20 14:52 Pulse Ox 94 L 01/06/20 14:52 - Orders/Labs/Meds Orders: Active Orders 24 hr Category Date Time Status RT Post Treatment Assessment [RC] Click to Edit Care 01/06/20 15:15 Active Chest 1V Frontal [CR] Stat Exams 01/06/20 15:14 Taken Albuterol/Ipratropium [Combivent Respimat] Med 01/06/20 15:14 Active 2 gm INH Q4H PRN Isolation [COMM] Stat Oth 01/06/20 15:14 Ordered Medication Orders Albuterol/Ipratropium (Combivent Respimat) 2 gm INH Q4H PRN PRN Reason: Dyspnea Last Admin: 01/06/20 15:20 Dose: 1 inhalation Documented by: [email or web address] Labs: Laboratory Tests 01/06/20 01/06/20 01/06/20 Range/Units 15:14 15:39 15:39 WBC (4.5-11.0) K/uL RBC (4.30-5.90) M/uL Hgb (12.0-15.0) g/dL Hct (40.0-54.0) % MCV (80-98) fL MCH (27-31) pg MCHC (32-36) % Plt Count (150-400) K/uL Neut % (Auto) (36-66) % Lymph % (Auto) (24-44) % Harrison % (Auto) (2-6) % Eos % (Auto) (2-4) % Baso % (Auto) (0-1) % PT 11.4 (9.5-12.0) sec INR 1.05 (0.80-1.20) D-Dimer, Quantitative (0.0-500.0) ng/mL Puncture Site Lt.radial ABG pH 7.469 H (7.350-7.450) ABG pCO2 30.5 L (35.0-42.0) mmHg ABG pO2 67.8 L (75.0-100.0) mmHg ABG HCO3 21.8 L (22.0-26.0) mmol/L ABG Total CO2 18.6 L (23.0-27.0) mmol/L ABG O2 Saturation 93.4 L (95.0-98.0) % ABG O2 Content 19.5 (15.0-23.0) %vol ABG Base Excess -0.4 mm/L ABG Hemoglobin 15.2 (13.5-18.0) g/dL ABG Oxyhemoglobin 91.3 % ABG Carboxyhemoglobin 1.2 (0.0-1.6) % ABG Methemoglobin 1.0 % Shay Test Passed O2 Delivery Device Room air Sodium (140-148) mmol/L Potassium (3.6-5.2) mmol/L Chloride (100-108) mmol/L Carbon Dioxide (21-32) mmol/L Anion Gap (5.0-14.0) mmol/L BUN (7-18) mg/dL Creatinine (0.8-1.3) mg/dL Est Cr Clr Drug Dosing mL/min Estimated GFR (MDRD) (>60) Glucose (74-106) mg/dL Lactic Acid (0.4-2.0) mmol/L Calcium (8.5-10.1) mg/dL Ferritin 533 H (8-388) ng/ml Total Bilirubin (0.2-1.0) mg/dL Direct Bilirubin (0.0-0.2) mg/dL Indirect Bilirubin AST (15-37) U/L ALT (12-78) U/L Alkaline Phosphatase (46-116) U/L Lactate Dehydrogenase (85-227) U/L C-Reactive Protein (0.0-0.3) mg/dL Total Protein (6.4-8.2) g/dL Albumin (3.4-5.0) g/dL Globulin (2.3-3.5) g/dL Albumin/Globulin Ratio (1.2-2.2) Procalcitonin ng/mL 01/06/20 01/06/20 01/06/20 Range/Units 15:39 15:39 15:39 WBC 7.6 (4.5-11.0) K/uL RBC 4.34 (4.30-5.90) M/uL Hgb 14.1 D (12.0-15.0) g/dL Hct 40.7 (40.0-54.0) % MCV 94 (80-98) fL MCH 33 H (27-31) pg MCHC 35 (32-36) % Plt Count 210 (150-400) K/uL Neut % (Auto) 70 H (36-66) % Lymph % (Auto) 14 L (24-44) % Harrison % (Auto) 16 H (2-6) % Eos % (Auto) 1 L (2-4) % Baso % (Auto) 0 (0-1) % PT (9.5-12.0) sec INR (0.80-1.20) D-Dimer, Quantitative 523.6 H (0.0-500.0) ng/mL Puncture Site ABG pH (7.350-7.450) ABG pCO2 (35.0-42.0) mmHg ABG pO2 (75.0-100.0) mmHg ABG HCO3 (22.0-26.0) mmol/L ABG Total CO2 (23.0-27.0) mmol/L ABG O2 Saturation (95.0-98.0) % ABG O2 Content (15.0-23.0) %vol ABG Base Excess mm/L ABG Hemoglobin (13.5-18.0) g/dL ABG Oxyhemoglobin % ABG Carboxyhemoglobin (0.0-1.6) % ABG Methemoglobin % Shay Test O2 Delivery Device Sodium 132 L (140-148) mmol/L Potassium 4.1 (3.6-5.2) mmol/L Chloride 98 L (100-108) mmol/L Carbon Dioxide 23 (21-32) mmol/L Anion Gap 15.1 H (5.0-14.0) mmol/L BUN 14 (7-18) mg/dL Creatinine 0.9 (0.8-1.3) mg/dL Est Cr Clr Drug Dosing 94.13 mL/min Estimated GFR (MDRD) > 60 (>60) Glucose 216 H (74-106) mg/dL Lactic Acid (0.4-2.0) mmol/L Calcium 8.8 (8.5-10.1) mg/dL Ferritin (8-388) ng/ml Total Bilirubin 0.7 (0.2-1.0) mg/dL Direct Bilirubin 0.17 (0.0-0.2) mg/dL Indirect Bilirubin 0.53 AST 26 (15-37) U/L ALT 43 (12-78) U/L Alkaline Phosphatase 55 (46-116) U/L Lactate Dehydrogenase 182 (85-227) U/L C-Reactive Protein 10.23 H (0.0-0.3) mg/dL Total Protein 7.3 (6.4-8.2) g/dL Albumin 2.6 L (3.4-5.0) g/dL Globulin 4.7 H (2.3-3.5) g/dL Albumin/Globulin Ratio 0.6 L (1.2-2.2) Procalcitonin ng/mL 01/06/20 01/06/20 Range/Units 15:39 15:39 WBC (4.5-11.0) K/uL RBC (4.30-5.90) M/uL Hgb (12.0-15.0) g/dL Hct (40.0-54.0) % MCV (80-98) fL MCH (27-31) pg MCHC (32-36) % Plt Count (150-400) K/uL Neut % (Auto) (36-66) % Lymph % (Auto) (24-44) % Harrison % (Auto) (2-6) % Eos % (Auto) (2-4) % Baso % (Auto) (0-1) % PT (9.5-12.0) sec INR (0.80-1.20) D-Dimer, Quantitative (0.0-500.0) ng/mL Puncture Site ABG pH (7.350-7.450) ABG pCO2 (35.0-42.0) mmHg ABG pO2 (75.0-100.0) mmHg ABG HCO3 (22.0-26.0) mmol/L ABG Total CO2 (23.0-27.0) mmol/L ABG O2 Saturation (95.0-98.0) % ABG O2 Content (15.0-23.0) %vol ABG Base Excess mm/L ABG Hemoglobin (13.5-18.0) g/dL ABG Oxyhemoglobin % ABG Carboxyhemoglobin (0.0-1.6) % ABG Methemoglobin % Shay Test O2 Delivery Device Sodium (140-148) mmol/L Potassium (3.6-5.2) mmol/L Chloride (100-108) mmol/L Carbon Dioxide (21-32) mmol/L Anion Gap (5.0-14.0) mmol/L BUN (7-18) mg/dL Creatinine (0.8-1.3) mg/dL Est Cr Clr Drug Dosing mL/min Estimated GFR (MDRD) (>60) Glucose (74-106) mg/dL Lactic Acid 2.5 H (0.4-2.0) mmol/L Calcium (8.5-10.1) mg/dL Ferritin (8-388) ng/ml Total Bilirubin (0.2-1.0) mg/dL Direct Bilirubin (0.0-0.2) mg/dL Indirect Bilirubin AST (15-37) U/L ALT (12-78) U/L Alkaline Phosphatase (46-116) U/L Lactate Dehydrogenase (85-227) U/L C-Reactive Protein (0.0-0.3) mg/dL Total Protein (6.4-8.2) g/dL Albumin (3.4-5.0) g/dL Globulin (2.3-3.5) g/dL Albumin/Globulin Ratio (1.2-2.2) Procalcitonin 0.12 ng/mL Meds: Medications Generic Name Dose Route Start Last Admin Trade Name Freq PRN Reason Stop Dose Admin Albuterol/Ipratropium 2 gm 01/06/20 15:14 01/06/20 15:20 Combivent Respimat INH 1 inhalation Q4H PRN Administration Dyspnea Discontinued Medications Generic Name Dose Route Start Last Admin Trade Name Khris PRN Reason Stop Dose Admin Ketorolac Tromethamine 60 mg 01/06/20 15:14 01/06/20 15:20 Toradol IM 01/06/20 15:15 60 mg ONETIME ONE Administration Lorazepam 1 mg 01/06/20 15:14 01/06/20 15:20 Ativan PO 01/06/20 15:15 1 mg ONETIME ONE Administration Departure - Departure Time of Disposition: 17:19 Disposition: Home, Self-Care 01 Condition: Fair Clinical Impression: COVID-19 - Discharge Information Instructions: COVID-19 Frequently Asked Questions, COVID-19 Referrals: PCP,None [Primary Care Provider] - Forms: ED Department Discharge Additional Instructions: Continue to use the Toradol as needed for muscle aches, continue to use your Combivent inhaler for shortness of breath, please followup with your primary care provider in 5-7 days if not better, please call return to the emergency department with worsening of symptoms. Sepsis Event Note (ED) - Evaluation Sepsis Screening Result: No Definite Risk - Focused Exam Vital Signs: Vital Signs Temp Pulse Resp BP Pulse Ox 01/06/20 14:52 97.6 F 107 H 20 141/96 H 94 L 01/06/20 14:51 97.6 F 107 H 20 141/96 H 94 L - My Orders Last 24 Hours: My Active Orders 01/06/20 15:14 Chest 1V Frontal [CR] Stat Albuterol/Ipratropium [Combivent Respimat] 2 gm INH Q4H PRN Isolation [COMM] Stat 01/06/20 15:15 RT Post Treatment Assessment [RC] Click to Edit - Assessment/Plan Last 24 Hours: My Active Orders 01/06/20 15:14 Chest 1V Frontal [CR] Stat Albuterol/Ipratropium [Combivent Respimat] 2 gm INH Q4H PRN Isolation [COMM] Stat 01/06/20 15:15 RT Post Treatment Assessment [RC] Click to Edit Plan: Assessment Acuity = acute Site and laterality = viral syndrome Etiology = COVID-19 Manifestations = myalgias, dyspnea Location of injury = Home Lab values = CBC unremarkable D-dimer slightly elevated 523 consistent inflammatory marker ABG pH 7.42 PCO2 30.5 bicarb 21.8 consistent with primary respiratory alkalosis sodium low at 132 consistent hyponatremia lactic acid slightly elevated 2.5 consistent with lactic acidosis ferritin elevated 533 LDH normal 182 CRP elevated 20.23 procalcitonin consistent with nonbacterial infection chest x-ray reveals patchy infiltrates consistent with Covid type pattern Plan He had good relief with the Combivent inhaler and Toradol he will use the Combivent inhaler at home prescription for Toradol 10 mg 1 tab p.o. 3 times daily as needed total #20 follow-up primary care 5 to 7 days if no improvement This note was dictated using [employer] voice recognition software please call with any questions on syntax or grammar.
--- NOTE | 2020-01-07 09:25 | CRLCR ---
Indication: Respiratory failure Comparison: None available. Technique: Single AP view chest Findings: There is hyperinflation and chronic interstitial change. There are questionable patchy airspace opacities of the peripheral left upper and left lower lobes. The cardiomediastinal silhouette is within normal limits. The bony thorax is grossly intact. Impression: Hyperinflation and mild chronic interstitial changes with developing infiltrates in the left lower and inferior left upper lobes. Dictated by Timi Norwood MD @ Jan 06 2020 3:39PM Signed by Dr. Timi Norwood @ Jan 06 2020 3:40PM
== END 2020-01-06 18:00 | disposition home or self-care (01) ==
LOC: JP.ED 14:36
DX: U07.1 COVID-19 (principal); E11.9 Type 2 diabetes mellitus without complications; I10 Essential (primary) hypertension; Z79.4 Long term (current) use of insulin; Z79.899 Other long term (current) drug therapy
CPT/HCPCS: 36415; 36600; 71045; 80048; 80076; 82728; 82803; 83605; 83615; 84145; 85025; 85379; 85610; 86140; 94640; 96372; 99284; 99285; A9270; J1885

== ENCOUNTER 2020-03-30 20:10 | Emergency (ER) | payer MEDICAID ==
[2020-03-30 20:34] VITALS: BP 134/85; PULSE 83
[2020-03-30] MEDS ORDERED: Lactated Ringers 1,000 ML IV ONE (20:50)
[2020-03-30] MEDS ORDERED: Ondansetron 4 MG/2 ML SDV IVPUSH ONE (20:50)
--- NOTE | 2020-03-30 20:52 | EDM.PDOC ---
ED HPI GENERAL MEDICAL PROBLEM - General Chief Complaint: Gastrointestinal Problem Stated Complaint: DIZZY, NAUSEA, VOMITTING Time Seen by Provider: 03/30/20 20:46 Source of Information: Reports: Patient, Family, RN Notes Reviewed History Limitations: Reports: No Limitations - History of Present Illness INITIAL COMMENTS - FREE TEXT/NARRATIVE: 59-year-old gentleman presents emergency department with a complaint of nausea vomiting diarrhea, he states the symptoms came on approximately 3 hours prior he thinks he may have eaten something that upset his stomach he is the only one and sick no other contact exposures no fevers. - Related Data Allergies Allergy/AdvReac Type Severity Reaction Status Date / Time banana Allergy Hives Verified 03/30/20 20:36 Home Meds: Home Meds Glimepiride 4 mg PO BID 02/19/13 [History] Lisinopril 5 mg PO QAM 02/19/13 [History] SitaGLIPtin [Januvia] 100 mg PO DAILY 02/19/13 [History] Canagliflozin [Invokana] 300 mg PO QAM 04/14/15 [History] Insulin Isophane NPH, Human [HumuLIN N] 40 units SUBCUT BID 07/30/18 [History] metFORMIN [Glucophage] 1 tab PO BEDTIME 11/27/18 [History] metFORMIN [Glucophage] 2 tab PO ACBREAKFAST 11/27/18 [History] Insulin Regular, Human [HumuLIN R] 30 units SQ TIDMEALS 03/30/20 [History] Past Medical History HEENT History: Reports: Impaired Vision, Other (See Below) Other HEENT History: wears glasses Cardiovascular History: Reports: Hypertension Respiratory History: Reports: Sleep Apnea Gastrointestinal History: Reports: Bowel Obstruction Genitourinary History: Reports: Other (See Below) Other Genitourinary History: erectile dysfunction Musculoskeletal History: Reports: Back Pain, Chronic Other Musculoskeletal History: herniated disk Neurological History: Reports: Concussion Endocrine/Metabolic History: Reports: Diabetes, Type II - Infectious Disease History Infectious Disease History: Reports: Chicken Pox - Past Surgical History HEENT Surgical History: Reports: Cataract Surgery, Eye Surgery, Oral Surgery, Other (See Below) Other HEENT Surgeries/Procedures: left eye band and bubble GI Surgical History: Reports: Hernia, Abdominal, Hernia Repair/Other, Other (See Below) Other GI Surgeries/Procedures: hourglass intestine, so obstructs at times Neurological Surgical History: Reports: None Social & Family History - Family History Family Medical History: No Pertinent Family History - Tobacco Use Tobacco Use Status *Q: Former Tobacco User Years of Tobacco use: 36 Used Tobacco, but Quit: Yes Month/Year Tobacco Last Used: 11/2004 - Caffeine Use Caffeine Use: Reports: Coffee, Energy Drinks - Recreational Drug Use Recreational Drug Use: No ED ROS GENERAL - Review of Systems Review Of Systems: See Below Constitutional: Denies: Fever, Chills HEENT: Reports: No Symptoms Respiratory: Reports: No Symptoms Cardiovascular: Reports: No Symptoms GI/Abdominal: Reports: Diarrhea, Nausea, Vomiting : Reports: No Symptoms ED EXAM, GI/ABD - Physical Exam Exam: See Below Exam Limited By: No Limitations General Appearance: Alert, WD/WN, No Apparent Distress Respiratory/Chest: No Respiratory Distress, Lungs Clear, Normal Breath Sounds, No Accessory Muscle Use, Chest Non-Tender Cardiovascular: Regular Rate, Rhythm, No Murmur GI/Abdominal Exam: Soft, Non-Tender Course - Vital Signs Last Recorded V/S: Last Vital Signs Temp 97.4 F 03/30/20 20:34 Pulse 83 03/30/20 20:34 Resp 16 03/30/20 20:34 BP 134/85 03/30/20 20:34 Pulse Ox 95 03/30/20 20:34 - Orders/Labs/Meds Labs: Laboratory Tests 03/30/20 03/30/20 03/30/20 Range/Units 21:05 21:05 21:05 WBC 4.9 (4.5-11.0) K/uL RBC 4.79 (4.30-5.90) M/uL Hgb 15.9 H (12.0-15.0) g/dL Hct 45.0 (40.0-54.0) % MCV 94 (80-98) fL MCH 33 H (27-31) pg MCHC 35 (32-36) % Plt Count 187 (150-400) K/uL Neut % (Auto) 57 (36-66) % Lymph % (Auto) 28 (24-44) % Adams % (Auto) 13 H (2-6) % Eos % (Auto) 2 (2-4) % Baso % (Auto) 0 (0-1) % Sodium 139 L (140-148) mmol/L Potassium 4.2 (3.6-5.2) mmol/L Chloride 102 (100-108) mmol/L Carbon Dioxide 26 (21-32) mmol/L Anion Gap 15.2 H (5.0-14.0) mmol/L BUN 17 (7-18) mg/dL Creatinine 0.9 (0.8-1.3) mg/dL Est Cr Clr Drug Dosing TNP Estimated GFR (MDRD) > 60 (>60) Glucose 207 H (74-106) mg/dL Lactic Acid 1.7 (0.4-2.0) mmol/L Calcium 9.0 (8.5-10.1) mg/dL Total Bilirubin 0.4 (0.2-1.0) mg/dL AST 22 (15-37) U/L ALT 39 (12-78) U/L Alkaline Phosphatase 70 (46-116) U/L Total Protein 7.3 (6.4-8.2) g/dL Albumin 3.7 (3.4-5.0) g/dL Globulin 3.6 H (2.3-3.5) g/dL Albumin/Globulin Ratio 1.0 L (1.2-2.2) Meds: Medications Discontinued Medications Generic Name Dose Route Start Last Admin Trade Name Freq PRN Reason Stop Dose Admin Lactated Ringer's 1,000 mls @ 999 mls/hr 03/30/20 20:50 03/30/20 21:03 Ringers, Lactated IV 03/30/20 21:50 999 mls/hr BOLUS ONE Administration Ondansetron HCl 4 mg 03/30/20 20:50 03/30/20 21:03 Zofran IVPUSH 03/30/20 20:51 4 mg ONETIME ONE Administration Departure - Departure Time of Disposition: 22:03 Disposition: Home, Self-Care 01 Condition: Fair Clinical Impression: Gastroenteritis - Discharge Information Instructions: Dehydration, Adult, [id number], Viral Gastroenteritis, Adult, [id number] Referrals: Albert Carpenter Sr, [Primary Care Provider] - Forms: ED Department Discharge Additional Instructions: Use Zofran as needed for nausea vomiting symptoms, continue to push fluids, please followup with your primary care provider in 3-5 days if not better, please call return to the emergency department with worsening of symptoms. Sepsis Event Note (ED) - Evaluation Sepsis Screening Result: No Definite Risk - Focused Exam Vital Signs: Vital Signs Temp Pulse Resp BP Pulse Ox 03/30/20 20:34 97.4 F 83 16 134/85 95 03/30/20 20:33 97.4 F 83 16 134/85 95 - Assessment/Plan Plan: Assessment Acuity = acute Site and laterality = gastroenteritis Etiology = probably viral Manifestations = nausea vomiting diarrhea Location of injury = Home Lab values = CBC CMP lactic acid within normal limits except for glucose elevated at 207 consistent with hyperglycemia Plan Good relief with 1 L fluids and Zofran provided in the emergency department prescription written for Zofran 4 mg ODT 1 tab p.o. 3 times daily as needed ~#5 follow-up primary care 3 to 5 days if not better continue to push fluids This note was dictated using [employer] voice recognition software please call with any questions on syntax or grammar.
== END 2020-03-30 22:22 | disposition home or self-care (01) ==
LOC: JP.ED 20:10
DX: K52.9 Noninfective gastroenteritis and colitis, unspecified (principal); I10 Essential (primary) hypertension; E11.9 Type 2 diabetes mellitus without complications; Z87.891 Personal history of nicotine dependence; Z91.018 Allergy to other foods; Z79.4 Long term (current) use of insulin; Z79.899 Other long term (current) drug therapy
CPT/HCPCS: 36415; 80053; 83605; 85025; 96374; 99283; 99284-25; J2405; J7120

== ENCOUNTER 2020-08-25 22:52 | Emergency (ER) | payer MEDICAID ==
[2020-08-26 00:19] VITALS: BP 141/88; PULSE 108
[2020-08-26] MEDS ORDERED: cefTRIAXone 2 GM in Sodium Chloride 0.9% 50 ML IV ONE (00:50)
[2020-08-26] MEDS ORDERED: Ketorolac 30 MG/ML SDV IVPUSH ONE (00:51)
[2020-08-26] MEDS ORDERED: Sodium Chloride 0.9% 10 ML Syringe FLUSH PRN (00:51)
--- NOTE | 2020-08-26 02:05 | EDM.PDOC ---
ED HPI GENERAL MEDICAL PROBLEM - General Chief Complaint: Lower Extremity Injury/Pain Stated Complaint: L BIG TOE INFLAMATION Time Seen by Provider: 08/26/20 00:22 Source of Information: Reports: Patient History Limitations: Reports: No Limitations - History of Present Illness INITIAL COMMENTS - FREE TEXT/NARRATIVE: Derrick is a 59-year-old male presenting to the ED with a very painful, red, hot, and swollen left great toe. The patient reports that he had an ingrown toenail that he "dug out and trimmed down yesterday. 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 Patient has a history of diabetes. On initial examination, Nely was the toe red but there was a red line going up the dorsal foot to the ankle extending up from the toe, worrisome for an extending cellulitis. The patient also reports that he has not been feeling well today with a little bit of upset stomach and generalized malaise. Left Toe-Hailux Pain Score (Numeric/FACES): 10 - Related Data Allergies Allergy/AdvReac Type Severity Reaction Status Date / Time banana Allergy Hives Verified 08/26/20 00:14 Home Meds: Home Meds Glimepiride 4 mg PO BID 02/19/13 [History] Lisinopril 5 mg PO QAM 02/19/13 [History] SitaGLIPtin [Januvia] 100 mg PO DAILY 02/19/13 [History] Canagliflozin [Invokana] 300 mg PO QAM 04/14/15 [History] Insulin Isophane NPH, Human [HumuLIN N] 50 units SUBCUT BID 07/30/18 [History] metFORMIN [Glucophage] 1 tab PO BEDTIME 11/27/18 [History] metFORMIN [Glucophage] 2 tab PO ACBREAKFAST 11/27/18 [History] Insulin Regular, Human [HumuLIN R] 45 units SQ TIDMEALS 03/30/20 [History] Past Medical History HEENT History: Reports: Cataract, Impaired Vision, Other (See Below) Other HEENT History: wears glasses Cardiovascular History: Reports: Hypertension Respiratory History: Reports: Sleep Apnea Gastrointestinal History: Reports: Bowel Obstruction Genitourinary History: Reports: Other (See Below) Other Genitourinary History: erectile dysfunction Musculoskeletal History: Reports: Back Pain, Chronic Other Musculoskeletal History: herniated disk Neurological History: Reports: Concussion Endocrine/Metabolic History: Reports: Diabetes, Type II Hematologic History: Reports: Blood Transfusion(s) - Infectious Disease History Infectious Disease History: Reports: Chicken Pox, Novel Coronavirus - Past Surgical History HEENT Surgical History: Reports: Cataract Surgery, Eye Surgery, Oral Surgery, Other (See Below) Other HEENT Surgeries/Procedures: left eye band and bubble GI Surgical History: Reports: Cholecystectomy, Hernia, Abdominal, Hernia Repair/Other, Other (See Below) Other GI Surgeries/Procedures: hourglass intestine, so obstructs at times Neurological Surgical History: Reports: None, Lumbar Spine, Other (See Below) Other Neurological Surgeries/Procedures: L5 & 4 Social & Family History - Family History Family Medical History: No Pertinent Family History - Tobacco Use Tobacco Use Status *Q: Never Tobacco User - Caffeine Use Caffeine Use: Reports: Coffee, Energy Drinks - Recreational Drug Use Recreational Drug Use: No Review of Systems - Review of Systems Review Of Systems: See Below Constitutional: Reports: No Symptoms Eyes: Reports: No Symptoms Ears: Reports: No Symptoms Nose: Reports: No Symptoms Mouth/Throat: Reports: No Symptoms Respiratory: Reports: No Symptoms Cardiovascular: Reports: No Symptoms GI/Abdominal: Reports: No Symptoms Genitourinary: Reports: No Symptoms Musculoskeletal: Reports: Foot Pain (Left great toe and foot pain) Skin: Reports: Erythema (Marked erythema, swelling, and tenderness of the left great toe with serous drainage from the lateral nail bed.) Neurological: Reports: No Symptoms Psychiatric: Reports: No Symptoms ED EXAM, GENERAL - Physical Exam Exam: See Below Exam Limited By: No Limitations General Appearance: Alert, Anxious, Mild Distress Head: Normocephalic Neck: Normal Inspection Respiratory/Chest: No Respiratory Distress, Lungs Clear, Normal Breath Sounds Cardiovascular: Normal Peripheral Pulses, Regular Rate, Rhythm, No Murmur Extremities: Normal Range of Motion, Joint Swelling (Swelling of the left great toe), Increased Warmth, Redness, Other (Marked erythema, tenderness, swelling and temperature involving the left great toe. It is evident that the nail has been trimmed down on the lateral aspect into the nail matrix. There is granulation tissue in the nailbed region and serous discharge from the area of the matrix. The erythema extend) Neurological: Alert, Oriented, Normal Cognition, No Motor/Sensory Deficits Skin Exam: Erythema (Left great toe and foot), Increased Warmth (Left great toe and foot), Lymphangitis (Left great toe) Course - Vital Signs Last Recorded V/S: Last Vital Signs Temp 37.2 C 08/26/20 00:19 Pulse 108 H 08/26/20 00:19 Resp 20 08/26/20 00:19 BP 141/88 H 08/26/20 00:19 Pulse Ox 93 L 08/26/20 00:19 - Orders/Labs/Meds Orders: Active Orders 24 hr Category Date Time Status Sodium Chloride 0.9% [Saline Flush] Med 08/26/20 00:51 Active 10 ml FLUSH ASDIRECTED PRN Saline Lock Insert [OM.PC] Routine Oth 08/26/20 00:51 Ordered Medication Orders Sodium Chloride (Sodium Chloride 0.9% 10 Ml Syringe) 10 ml FLUSH ASDIRECTED PRN PRN Reason: Keep Vein Open Last Admin: 08/26/20 01:00 Dose: 10 ml Documented by: MIN Labs: Laboratory Tests 08/26/20 08/26/20 Range/Units 00:50 00:50 WBC 11.7 H (4.5-11.0) K/uL RBC 4.80 (4.30-5.90) M/uL Hgb 16.3 H (12.0-15.0) g/dL Hct 45.2 (40.0-54.0) % MCV 94 (80-98) fL MCH 34 H (27-31) pg MCHC 36 (32-36) % Plt Count 188 (150-400) K/uL Neut % (Auto) 75.7 H (36-66) % Lymph % (Auto) 12.1 L (24-44) % [place] % (Auto) 11.2 H (2-6) % Eos % (Auto) 0.8 L (2-4) % Baso % (Auto) 0.2 (0-1) % C-Reactive Protein 1.12 H (0.0-0.3) mg/dL Meds: Medications Generic Name Dose Route Start Last Admin Trade Name Freq PRN Reason Stop Dose Admin Sodium Chloride 10 ml 08/26/20 00:51 08/26/20 01:00 Sodium Chloride 0.9% 10 Ml Syringe FLUSH 10 ml ASDIRECTED PRN Administration Keep Vein Open Discontinued Medications Generic Name Dose Route Start Last Admin Trade Name Khris PRN Reason Stop Dose Admin Ceftriaxone Sodium 2 gm/ 50 mls @ 100 mls/hr 08/26/20 00:50 08/26/20 01:00 Sodium Chloride IV 08/26/20 01:19 100 mls/hr ONETIME ONE Administration Ketorolac Tromethamine 30 mg 08/26/20 00:51 08/26/20 01:00 Ketorolac 30 Mg/Ml Sdv IVPUSH 08/26/20 00:52 30 mg ONETIME ONE Administration - Re-Assessments/Exams Free Text/Narrative Re-Assessment/Exam: 08/26/20 02:10 the patient has a definite cellulitis involving the left great toe, nail matrix extending up the dorsal foot to the ankle. We initiated antibiotics with Rocephin 2 g IV and we will start the patient on oral antibiotics with cephalexin 500 mg 4 times daily and Bactrim DS twice daily for the next 10 days. I also provided him with a small amount of hydrocodone for pain. Patient is instructed to elevate the foot to reduce pain and swelling. I had like him to see podiatry as soon as possible as he is diabetic and has had rapid extension of this infection in just 24 hours. I have advised him against any further digging in the nailbed or nail matrix at this time. Referral for podiatry has been placed. Indications to return to the ED were discussed with the patient. Departure - Departure Time of Disposition: 02:03 Disposition: Home, Self-Care 01 Clinical Impression: Cellulitis of great toe, left, Ingrown nail of great toe of left foot - Discharge Information Referrals: PCP,None [Primary Care Provider] - Forms: ED Department Discharge Care Plan Goals: We are going to put you on cephalexin 500 mg every 6 hours and Bactrim DS twice daily for the next 10 days. I have put through a referral for you to see podiatry as soon as possible. With you being diabetic and this infection spreading up the foot, we need to be very aggressive in treating it. Please avoid any further digging in the nail. I have also provided you with a small prescription of hydrocodone for pain control. Sepsis Event Note (ED) - Evaluation Sepsis Screening Result: Possible Sepsis Risk - Focused Exam Vital Signs: Vital Signs Temp Pulse Resp BP Pulse Ox 08/26/20 00:19 37.2 C 108 H 20 141/88 H 93 L 08/26/20 00:18 37.2 C 108 H 20 141/88 H 93 L - My Orders Last 24 Hours: My Active Orders 08/26/20 00:51 Sodium Chloride 0.9% [Saline Flush] 10 ml FLUSH ASDIRECTED PRN Saline Lock Insert [OM.PC] Routine - Assessment/Plan Last 24 Hours: My Active Orders 08/26/20 00:51 Sodium Chloride 0.9% [Saline Flush] 10 ml FLUSH ASDIRECTED PRN Saline Lock Insert [OM.PC] Routine
== END 2020-08-26 02:14 | disposition home or self-care (01) ==
LOC: JP.ED 22:52
DX: K52.9 Noninfective gastroenteritis and colitis, unspecified (principal); K56.609 Unspecified intestinal obstruction, unspecified as to partial versus complete obstruction; Z91.018 Allergy to other foods
CPT/HCPCS: 36415; 85025; 86140; 96365; 96375; 99283; J0696; J1885

== ENCOUNTER 2021-03-31 19:13 | Emergency (ER) | payer MEDICAID ==
[2021-03-31 19:50] VITALS: BP 147/101; PULSE 120
[2021-03-31 20:25] LABS: CORONAVIRUS COVID-19 NAA NEGATIVE (NEGATIVE)
== END 2021-03-31 21:04 | disposition home or self-care (01) ==
LOC: JP.ED 19:13
DX: B34.9 Viral infection, unspecified (principal); E11.9 Type 2 diabetes mellitus without complications; I10 Essential (primary) hypertension; Z91.018 Allergy to other foods; Z79.4 Long term (current) use of insulin; Z20.822 Contact with and (suspected) exposure to COVID-19
CPT/HCPCS: 0241U; 99282; 99283

== ENCOUNTER 2021-10-10 18:30 | Emergency (ER) | payer MEDICAID ==
[2021-10-10 19:15] VITALS: BP 145/94; PULSE 107
[2021-10-10] MEDS ORDERED: Ibuprofen 600 MG Tab PO ONE (19:44)
== END 2021-10-10 20:13 | disposition home or self-care (01) ==
LOC: JP.ED 18:30
DX: U07.1 COVID-19 (principal); I10 Essential (primary) hypertension; E11.9 Type 2 diabetes mellitus without complications; Z91.018 Allergy to other foods; Z79.899 Other long term (current) drug therapy; Z79.4 Long term (current) use of insulin; Z79.84 Long term (current) use of oral hypoglycemic drugs; Z86.16 Personal history of COVID-19; Z90.49 Acquired absence of other specified parts of digestive tract
CPT/HCPCS: 87081; 87635; 87880; 99284; A9270; U0002

== ENCOUNTER 2023-12-05 21:55 | Emergency (ER) | payer MEDICAID ==
[2023-12-05 22:09] VITALS: PULSE 101
[2023-12-05 22:48] LABS: BASE EXCESS VENOUS -0.4 mm/L; BICARBONATE,VENOUS 23.2 mmol/L; CARBOXYHEMOGLOBIN 2.5 % (0.0-1.6); METHEMOGLOBIN 2.1 %; O2 SATURATION VENOUS 86.1; OXYHEMOGLOBIN 82.1 %; PH,VENOUS 7.414 (7.350-7.450); TOTAL HEMOGLOBIN 16.9 g/dL (13.5-18.0)
[2023-12-05 23:01] LABS: HEMOGLOBIN A1C 12.4 % (4.5-6.2)
[2023-12-05 23:07] LABS: A/G RATIO 0.7 (1.2-2.2); ALBUMIN 3.1 g/dL (3.4-5.0); ALKALINE PHOSPHATASE 118 U/L (46-116); BLOOD UREA NITROGEN,BUN 19 mg/dL (7-18); CALCIUM 7.3 mg/dL (8.5-10.1); CARBON DIOXIDE,CO2 22 mmol/L (21-32); CHLORIDE,CL 92 mmol/L (100-108); CREATININE 0.8 mg/dL (0.8-1.3); EST CRCL DRUG DOSING (CG) 94.51 mL/min; ESTIMATED GFR 99 mL/min (>60); POTASSIUM,K 4.6 mmol/L (3.6-5.2); PROTEIN TOTAL,TP 7.6 g/dL (6.4-8.2); SODIUM,NA 127 mmol/L (140-148)
[2023-12-05 23:09] LABS: ANION GAP 17.6 mmol/L (5.0-14.0)
[2023-12-05 23:10] LABS: GLUCOSE RANDOM 573 mg/dL (74-106)
[2023-12-05 23:17] LABS: BASOPHILS ABSOLUTE AUTO 0.06 K/uL (0.00-0.10); BASOPHILS PERCENT AUTO 1.1 % (0.1-1.3); EOSINOPHILS ABSOLUTE AUTO 0.17 K/uL (0.00-0.40); HEMATOCRIT 38.1 % (38.4-49.7); HEMOGLOBIN 15.4 g/dL (12.9-16.9); IMMATURE GRAN PERCENT AUTO 0.4 % (0.0-0.7); LYMPHOCYTES ABSOLUTE AUTO 2.45 K/uL (0.8-3.3); LYMPHOCYTES PERCENT AUTO 43.4 % (11.4-47.7); MEAN CORPUSCULAR HEMOGLOBIN 36.2 pg (31.6-35.5); MEAN CORPUSCULAR HGB CONC 40.4 g/dL (31.6-35.5); MEAN CORPUSCULAR VOLUME 89.4 fL (81.4-99.0); MONOCYTES ABSOLUTE AUTO 0.46 K/uL (0.20-0.90); MONOCYTES PERCENT AUTO 8.1 % (3.3-12.6); NEUTROPHILS ABSOLUTE AUTO 2.49 K/uL (1.0-7.6); PLATELET COUNT,PLT 281 K/uL (130-375); RED BLOOD CELL COUNT 4.26 M/uL (4.14-5.76); WHITE BLOOD CELL COUNT,WBC 5.7 K/uL (3.2-11.0)
[2023-12-05] MEDS ORDERED: 50% Dextrose in Water 50 ML Syringe IVPUSH PRN (23:21)
[2023-12-05] MEDS ORDERED: Glucagon,Human Recombinant 1 MG Vial IM PRN (23:21)
[2023-12-05 23:22] LABS: IMMATURE GRAN ABSOLUTE AUTO 0.02 K/uL (0.00-0.23)
[2023-12-05 23:28] LABS: APPEARANCE,URINE CLEAR (CLEAR); BILIRUBIN,URINE NEGATIVE (NEGATIVE); COLOR,URINE YELLOW (YELLOW); GLUCOSE,URINE 500 mg/dL (NEGATIVE); KETONES,URINE 40 mg/dL (NEGATIVE); LEUKOCYTE ESTERASE,URINE NEGATIVE (NEGATIVE); NITRITE,URINE NEGATIVE (NEGATIVE); OCCULT BLOOD,URINE NEGATIVE (NEGATIVE); PH,URINE 5.5 (5.0-8.0); PROTEIN,URINE NEGATIVE (NEGATIVE); UROBILINOGEN,URINE 0.2 EU/dL (0.2-1.0)
[2023-12-05 23:35] LABS: AMORPHOUS SEDIMENT,URINE NOT SEEN; BACTERIA,URINE RARE; EPITHELIAL CELLS,URINE RARE; MUCUS,URINE NOT SEEN; RBC,URINE 0-5 (0-5); WBC,URINE 0-5 (0-5)
[2023-12-05] MEDS: Insulin Regular, Human 100 Units/ML 3 ML Vial SUBCUT ONE (23:39)
[2023-12-06] MEDS ORDERED: Glucagon,Human Recombinant 1 MG Vial IM PRN ×2 (00:49→00:59)
[2023-12-06] MEDS ORDERED: 50% Dextrose in Water 50 ML Syringe IVPUSH PRN ×2 (00:49→00:59)
[2023-12-06] MEDS: Insulin Regular, Human 100 Units/ML 3 ML Vial SUBCUT ONE ×2 (00:55→01:00)
[2023-12-06 02:31] VITALS: BP 113/77
== END 2023-12-06 02:19 | disposition home or self-care (01) ==
LOC: JP.ED 21:55
DX: E11.65 Type 2 diabetes mellitus with hyperglycemia (principal); I10 Essential (primary) hypertension; Z86.16 Personal history of COVID-19; Z90.49 Acquired absence of other specified parts of digestive tract; Z79.4 Long term (current) use of insulin; Z79.899 Other long term (current) drug therapy; Z91.018 Allergy to other foods
CPT/HCPCS: 36415; 80053; 81001; 82009; 82803; 82947; 83036; 83605; 85025; 99284; J1815-GY

== ENCOUNTER 2024-05-19 14:57 | Emergency (ER) | payer MEDICAID ==
[2024-05-19] MEDS: Sodium Chloride 0.9% 100 ML IV SCH (15:59)
[2024-05-19] MEDS: Iopamidol 755 Mg/ML 100 ML Bottle IV SCH (16:00)
[2024-05-19] MEDS: Sodium Chloride 0.9% 10 ML Syringe FLUSH PRN (16:00)
[2024-05-19 16:04] LABS: CALCIUM 9.3 mg/dL (8.5-10.1); EST CRCL DRUG DOSING (CG) 80.53 mL/min; POTASSIUM,K 4.7 mmol/L (3.6-5.2)
[2024-05-19 16:06] LABS: ANION GAP 18.7 mmol/L (5.0-14.0)
[2024-05-19 16:09] LABS: BASOPHILS ABSOLUTE AUTO 0.05 K/uL (0.00-0.10); BASOPHILS PERCENT AUTO 0.8 % (0.1-1.3); EOSINOPHILS PERCENT AUTO 3.3 % (0.0-5.4); HEMATOCRIT 48.2 % (38.4-49.7); IMMATURE GRAN ABSOLUTE AUTO 0.04 K/uL (0.00-0.23); IMMATURE GRAN PERCENT AUTO 0.7 % (0.0-0.7); LYMPHOCYTES ABSOLUTE AUTO 1.88 K/uL (0.8-3.3); LYMPHOCYTES PERCENT AUTO 31.3 % (11.4-47.7); MEAN CORPUSCULAR HGB CONC 38.2 g/dL (31.6-35.5); MEAN CORPUSCULAR VOLUME 91.6 fL (81.4-99.0); MONOCYTES ABSOLUTE AUTO 0.51 K/uL (0.20-0.90); MONOCYTES PERCENT AUTO 8.5 % (3.3-12.6); NEUTROPHILS ABSOLUTE AUTO 3.33 K/uL (1.0-7.6); NEUTROPHILS PERCENT AUTO 55.4 % (40.0-78.1); PLATELET COUNT,PLT 171 K/uL (130-375); RED BLOOD CELL COUNT 5.26 M/uL (4.14-5.76)
[2024-05-19 16:10] LABS: HEMOGLOBIN 18.4 g/dL (12.9-16.9)
[2024-05-19] MEDS ORDERED: Glucagon,Human Recombinant 1 MG Vial IM PRN (16:12)
[2024-05-19] MEDS ORDERED: 50% Dextrose in Water 50 ML Syringe IVPUSH PRN (16:12)
[2024-05-19] MEDS: Insulin Regular, Human 100 Units/ML 10 ML Vial SUBCUT ONE (16:27)
[2024-05-19 16:31] VITALS: BP 149/101; PULSE 94
[2024-05-19] MEDS: Ketorolac 15 MG/ML SDV IVPUSH ONE (16:46)
[2024-05-19] MEDS: Cyclobenzaprine 10 MG Tab PO ONE (16:47)
== END 2024-05-19 17:43 | disposition home or self-care (01) ==
LOC: JP.ED 14:57
DX: E87.1 Hypo-osmolality and hyponatremia (principal); E11.65 Type 2 diabetes mellitus with hyperglycemia; I10 Essential (primary) hypertension; D58.2 Other hemoglobinopathies; Z90.49 Acquired absence of other specified parts of digestive tract; Z91.018 Allergy to other foods; Z79.4 Long term (current) use of insulin; Z79.899 Other long term (current) drug therapy
CPT/HCPCS: 36415; 70450; 70496; 70498; 80048; 82947; 85025; 86140; 96374; 99284; A9270; J1885; Q9967

== ENCOUNTER 2024-11-28 22:39 | Inpatient (IN) | payer MEDICAID ==
[2024-11-28] MEDS ORDERED: Sodium Chloride 0.9% 10 ML Syringe FLUSH PRN (23:24)
[2024-11-28] MEDS ORDERED: Naloxone 0.4 MG/ML SDV IVPUSH PRN (23:24)
[2024-11-28 23:29] LABS: BASOPHILS ABSOLUTE AUTO 0.04 K/uL (0.00-0.10); BASOPHILS PERCENT AUTO 0.5 % (0.1-1.3); EOSINOPHILS ABSOLUTE AUTO 0.15 K/uL (0.00-0.40); EOSINOPHILS PERCENT AUTO 1.8 % (0.0-5.4); IMMATURE GRAN PERCENT AUTO 0.2 % (0.0-0.7); LYMPHOCYTES ABSOLUTE AUTO 2.01 K/uL (0.8-3.3); LYMPHOCYTES PERCENT AUTO 24.6 % (11.4-47.7); MONOCYTES ABSOLUTE AUTO 0.66 K/uL (0.20-0.90); MONOCYTES PERCENT AUTO 8.1 % (3.3-12.6); NEUTROPHILS ABSOLUTE AUTO 5.29 K/uL (1.0-7.6); NEUTROPHILS PERCENT AUTO 64.8 % (40.0-78.1); PLATELET COUNT,PLT 186 K/uL (130-375); RED BLOOD CELL COUNT 4.93 M/uL (4.14-5.76); WHITE BLOOD CELL COUNT,WBC 8.2 K/uL (3.2-11.0)
[2024-11-28] MEDS: Ondansetron 4 MG/2 ML SDV IVPUSH ONE (23:29)
[2024-11-28 23:30] LABS: IMMATURE GRAN ABSOLUTE AUTO 0.02 K/uL (0.00-0.23)
[2024-11-28 23:51] LABS: A/G RATIO 0.9 (1.2-2.2); ALANINE AMINOTRANSFERASE,ALT 41 U/L (12-78); ASPARTATE AMNIOTRANSFERASE,AST 23 U/L (15-37); BILIRUBIN TOTAL 0.7 mg/dL (0.2-1.0); BLOOD UREA NITROGEN,BUN 15 mg/dL (7-18); CARBON DIOXIDE,CO2 28 mmol/L (21-32); CHLORIDE,CL 99 mmol/L (100-108); CREATININE 0.9 mg/dL (0.8-1.3); EST CRCL DRUG DOSING (CG) 88.31 mL/min; ESTIMATED GFR 95 mL/min (>60); GLUCOSE RANDOM 263 mg/dL (74-106); POTASSIUM,K 4.1 mmol/L (3.6-5.2); PROTEIN TOTAL,TP 7.5 g/dL (6.4-8.2); SODIUM,NA 135 mmol/L (140-148)
[2024-11-28 23:58] LABS: LACTIC ACID 1.5 mmol/L (0.4-2.0)
[2024-11-29] MEDS: Iopamidol 612 MG/ML 100 ML Bottle IV SCH (00:14)
[2024-11-29] MEDS: Sodium Chloride 0.9% 10 ML Syringe FLUSH PRN (00:15)
[2024-11-29] MEDS ORDERED: Prochlorperazine 10 MG/2 ML SDV IV PRN (01:47)
[2024-11-29] MEDS ORDERED: Sodium Chloride 0.9% 10 ML Syringe FLUSH PRN (01:47)
[2024-11-29] MEDS ORDERED: Naloxone 0.4 MG/ML SDV IVPUSH PRN (02:01)
[2024-11-29] MEDS ORDERED: 50% Dextrose in Water 50 ML Syringe IVPUSH PRN (02:05)
[2024-11-29 05:40] LABS: BASOPHILS ABSOLUTE AUTO 0.05 K/uL (0.00-0.10); BASOPHILS PERCENT AUTO 0.7 % (0.1-1.3); EOSINOPHILS ABSOLUTE AUTO 0.16 K/uL (0.00-0.40); EOSINOPHILS PERCENT AUTO 2.2 % (0.0-5.4); IMMATURE GRAN PERCENT AUTO 0.1 % (0.0-0.7); LYMPHOCYTES ABSOLUTE AUTO 2.44 K/uL (0.8-3.3); LYMPHOCYTES PERCENT AUTO 33.9 % (11.4-47.7); MONOCYTES ABSOLUTE AUTO 0.57 K/uL (0.20-0.90); MONOCYTES PERCENT AUTO 7.9 % (3.3-12.6); NEUTROPHILS ABSOLUTE AUTO 3.97 K/uL (1.0-7.6); NEUTROPHILS PERCENT AUTO 55.2 % (40.0-78.1); PLATELET COUNT,PLT 189 K/uL (130-375); RED BLOOD CELL COUNT 4.75 M/uL (4.14-5.76); WHITE BLOOD CELL COUNT,WBC 7.2 K/uL (3.2-11.0)
[2024-11-29 05:45] LABS: IMMATURE GRAN ABSOLUTE AUTO 0.01 K/uL (0.00-0.23)
[2024-11-29 06:00] LABS: BLOOD UREA NITROGEN,BUN 15 mg/dL (7-18); CARBON DIOXIDE,CO2 27 mmol/L (21-32); CHLORIDE,CL 101 mmol/L (100-108); CREATININE 0.8 mg/dL (0.8-1.3); EST CRCL DRUG DOSING (CG) 99.35 mL/min; ESTIMATED GFR 99 mL/min (>60); GLUCOSE RANDOM 239 mg/dL (74-106); POTASSIUM,K 4.2 mmol/L (3.6-5.2); PROTEIN TOTAL,TP 7.0 g/dL (6.4-8.2); SODIUM,NA 136 mmol/L (140-148)
[2024-11-29 06:01] LABS: A/G RATIO 0.9 (1.2-2.2); ALANINE AMINOTRANSFERASE,ALT 39 U/L (12-78); ASPARTATE AMNIOTRANSFERASE,AST 19 U/L (15-37); BILIRUBIN TOTAL 0.7 mg/dL (0.2-1.0)
[2024-11-29] MEDS ORDERED: 50% Dextrose in Water 50 ML Syringe IV PRN (07:42)
[2024-11-29] MEDS ORDERED: Glucose Gel 15 GM in 37.5 GM Tube PO PRN (07:42)
[2024-11-29] MEDS ORDERED: FLU (Fluarix Triv) 25-26 (6MOS UP)/PF 45 MCG/0.5 ML Syringe IM ONE (09:00)
[2024-11-29] MEDS: Ondansetron 4 MG/2 ML SDV IV PRN (11:15)
[2024-11-29] MEDS: Insulin Lispro 100 Unit/ML 3 ML KwikPen SUBCUT SCH (11:39)
[2024-11-29] MEDS: D5 1/2 NS w/ 20 mEq/L KCl 1,000 ML IV SCH (20:47)
[2024-11-29] MEDS: Acetaminophen 1,000 MG in Premix Bag 1 BAG IV ONE (20:51)
[2024-11-30 05:51] LABS: BLOOD UREA NITROGEN,BUN 8.0 mg/dL (7-18); CARBON DIOXIDE,CO2 27.0 mmol/L (21-32); CHLORIDE,CL 103.0 mmol/L (100-108); CREATININE 0.7 mg/dL (0.8-1.3); EST CRCL DRUG DOSING (CG) 113.55 mL/min; ESTIMATED GFR 103.0 mL/min (>60); GLUCOSE RANDOM 205.0 mg/dL (74-106); POTASSIUM,K 4.0 mmol/L (3.6-5.2); SODIUM,NA 138.0 mmol/L (140-148)
[2024-11-30] MEDS: Insulin Glargine,Human Rec. Analog 100 Units/ML 3 ML Pen SUBCUT SCH (09:06)
[2024-11-30] MEDS: Diatrizoate Meglumine/Diatrizoate Sodium 37% 120 ML Bottle NGTUBE SCH (09:10)
[2024-11-30] MEDS: Ondansetron 4 MG/2 ML SDV IVPUSH PRN (09:29)
[2024-11-30] MEDS: FLU (Fluarix Triv) 25-26 (6MOS UP)/PF 45 MCG/0.5 ML Syringe IM ONE (11:53)
[2024-12-01 06:03] LABS: BLOOD UREA NITROGEN,BUN 7.0 mg/dL (7-18); CARBON DIOXIDE,CO2 27.0 mmol/L (21-32); CHLORIDE,CL 102.0 mmol/L (100-108); CREATININE 0.6 mg/dL (0.8-1.3); EST CRCL DRUG DOSING (CG) 132.47 mL/min; ESTIMATED GFR 108.0 mL/min (>60); GLUCOSE RANDOM 182.0 mg/dL (74-106); POTASSIUM,K 3.8 mmol/L (3.6-5.2); SODIUM,NA 137.0 mmol/L (140-148)
[2024-12-01 11:58] VITALS: BP 138/100; PULSE 80
== END 2024-12-01 14:45 | disposition home or self-care (01) | DRG 390 ==
LOC: JP.ED 22:39 → JP.MS 11-29 01:47
PROVIDERS: ADMIT Family Medicine; ATTEND Hospitalist
PROC: 0DH67UZ Insertion of Feeding Device into Stomach, Via Natural or Artificial Opening (ICD-10-PCS; principal; 2024-11-29)
DX: K56.609 Unspecified intestinal obstruction, unspecified as to partial versus complete obstruction (principal); H54.7 Unspecified visual loss; H26.9 Unspecified cataract; I10 Essential (primary) hypertension; G47.30 Sleep apnea, unspecified; N52.9 Male erectile dysfunction, unspecified; G89.29 Other chronic pain; M54.9 Dorsalgia, unspecified; F41.9 Anxiety disorder, unspecified; E11.9 Type 2 diabetes mellitus without complications; Z98.49 Cataract extraction status, unspecified eye; Z91.018 Allergy to other foods; Z97.3 Presence of spectacles and contact lenses; Z79.4 Long term (current) use of insulin; Z98.890 Other specified postprocedural states; Z90.49 Acquired absence of other specified parts of digestive tract
CPT/HCPCS: 36415; 43752; 74019; 74019-26; 74021; 74021-26; 74177; 80048; 80053; 82947; 83605; 83735; 85025; 86140; 90656; 96374; 96375; 96376; 99232; 99238; 99285; 99285-25; A9270-GY; J0131; J1171; J1815-GY; J2405; J3480; J7030; Q9963; Q9967